=== PATIENT | male | born 1990 | race Caucasian/White ===

== ENCOUNTER 2019-03-14 17:41 | Emergency (ER) | payer OTHER ==
[~2019-03-14] VITALS: Ht 177.8 cm; Wt 90.7 kg
[2019-03-14 17:42] VITALS: BP 134/74
[2019-03-14] MEDS ORDERED: MUCI120T PO (17:46)
[2019-03-14] MEDS ORDERED: ACETAMINOPHEN 325 MG TAB PO ONE (20:30)
[2019-03-14] MEDS ORDERED: BENZONATATE 100 MG CAP PO ONE (20:30)
[2019-03-14 21:52] LABS: INFLUENZA A AMPLIFICATION NEGATIVE (NEGATIVE); INFLUENZA B AMPLIFICATION NEGATIVE (NEGATIVE)
[2019-03-14] MEDS ORDERED: AZIT-12 PO (22:13)
[2019-03-14] MEDS ORDERED: BENZ200C70 PO (22:13)
[2019-03-14] MEDS ORDERED: AZITHROMYCIN 250 MG TAB PO ONE (22:15)
--- NOTE | 2019-03-15 08:39 | REP ---
REASON: Cough and fever. There is patchy opacity in the left lower lobe. The pleural angles are sharp. The heart is not enlarged. The osseous structures are normal. IMPRESSION: Left lower lobe pneumonia. Electronically Signed by Anthony Donnelly DO 03/15/2019 09:23 A
[2019-03-19 00:07] LABS: BORDETELLA PARAPERTUSSIS PCR Negative (Negative); BORDETELLA PERTUSSIS BY PCR Negative (Negative)
== END 2019-03-14 22:26 | disposition home or self-care (01) ==
LOC: M ED 17:41
DX: J18.1 Lobar pneumonia, unspecified organism (principal); F17.200 Nicotine dependence, unspecified, uncomplicated; Z79.899 Other long term (current) drug therapy